=== PATIENT | female | born 1940 | race Caucasian/White ===

== ENCOUNTER 2016-10-30 18:02 | Inpatient (IN) | payer MEDICARE ==
[~2016-10-30] VITALS: Ht 160 cm; Wt 62.6 kg
[2016-10-30] MEDS ORDERED: SODIUM CHLORIDE 0.9% 1,000 ML IV ONE (19:38)
[2016-10-30] MEDS ORDERED: LOSA50TA6 PO (19:41)
[2016-10-30] MEDS ORDERED: CIPR250T27 PO (19:41)
[2016-10-30] MEDS ORDERED: METO-95 PO (19:41)
[2016-10-30] MEDS ORDERED: URSO300C27 PO (19:41)
[2016-10-30] MEDS ORDERED: OMEG100023 PO (19:41)
[2016-10-30] MEDS ORDERED: SODI650T PO (19:41)
[2016-10-30] MEDS ORDERED: LOPE1LIQ31 PO (19:41)
[2016-10-30] MEDS ORDERED: OMEP-110 PO (19:41)
[2016-10-30] MEDS ORDERED: AMIT50TA PO (19:41)
[2016-10-30] MEDS ORDERED: CHOL200012 PO (19:41)
[2016-10-30] MEDS ORDERED: AMLO10TA2 PO (19:41)
[2016-10-30] MEDS ORDERED: MV-M1TAB35 PO (19:41)
[2016-10-30] MEDS ORDERED: ONDANSETRON 2MG/ML, 2ML ONE (19:45)
[2016-10-30] MEDS ORDERED: MORPHINE SULFATE 4 MG/ML, 1ML ONE (19:46)
[2016-10-30] MEDS ORDERED: SODIUM CHLORIDE 0.9% 1,000ML IVBOLUS ONE (20:00)
[2016-10-30] MEDS ORDERED: PLEASE ENTER ALLERGIES MC SCH ×2 (20:00)
[2016-10-30] MEDS ORDERED: MORPHINE SULFATE 4 MG/ML, 1ML IVPush PRN (20:00)
[2016-10-30] MEDS ORDERED: SODIUM CHLORIDE FLUSH 10ML SYR IVF ONE (20:00)
[2016-10-30] MEDS ORDERED: ONDANSETRON 2MG/ML, 2ML IVPush ONE (20:00)
[2016-10-30 20:14] LABS: ASPARTATE AMINO TRANSFERASE 45 U/L (15-37); BLOOD UREA NITROGEN 34 mg/dL (7-18)
[2016-10-30] MEDS ORDERED: HYDROmorphone 2 MG/ML, 1ML IVPush PRN (23:00)
[2016-10-30] MEDS ORDERED: LABETALOL 5MG/ML 40ML VIAL IVPush PRN (23:00)
[2016-10-30] MEDS ORDERED: PROMETHAZINE 25 MG/ML, 1ML IM PRN (23:00)
[2016-10-30] MEDS ORDERED: ONDANSETRON 2MG/ML, 2ML IVPush PRN (23:00)
[2016-10-30 23:11] VITALS: BP 142/79
[2016-10-31 01:17] VITALS: BP 114/60
[2016-10-31] MEDS: SODIUM CHLORIDE 0.9% 1,000 ML IV SCH ×3 (02:00→16:54)
[2016-10-31 06:05] LABS: BLOOD UREA NITROGEN 29 mg/dL (7-18)
[2016-10-31 07:25] VITALS: BP 120/77
[2016-10-31 13:06] VITALS: BP 150/84
[2016-10-31 20:40] VITALS: BP 138/81
[2016-10-31] MEDS: AMITRIPTYLINE 50 MG TABLET PO SCH (21:29)
[2016-11-01] MEDS: SODIUM CHLORIDE 0.9% 1,000 ML IV SCH ×3 (02:00→17:24)
[2016-11-01 04:07] VITALS: BP 130/64
[2016-11-01 06:19] LABS: ASPARTATE AMINO TRANSFERASE 66 U/L (15-37); BLOOD UREA NITROGEN 12 mg/dL (7-18)
[2016-11-01 07:02] VITALS: BP 139/77
[2016-11-01] MEDS ORDERED: MAGNESIUM SULFATE PMX 4GM/100M 100 ML IV ONE (07:30)
[2016-11-01] MEDS: LOSARTAN 50MG TABLET PO SCH (08:49)
[2016-11-01] MEDS: POTASSIUM CHLORIDE 20 MEQ TAB.ER.PRT PO SCH ×4 (08:49→22:20)
[2016-11-01] MEDS: AMITRIPTYLINE 50 MG TABLET PO SCH ×2 (08:49→21:08)
[2016-11-01] MEDS: METOPROLOL SUCCINATE 100 MG TAB.ER.24H PO SCH (08:50)
[2016-11-01] MEDS: OMEPRAZOLE 20 MG CAPSULE.DR PO SCH (08:50)
[2016-11-01] MEDS: AMLODIPINE 5 MG TABLET PO SCH (08:50)
[2016-11-01 14:11] VITALS: BP 127/80
[2016-11-01 20:02] VITALS: BP 130/75
[2016-11-02] MEDS: SODIUM CHLORIDE 0.9% 1,000 ML IV SCH ×2 (00:22→08:34)
[2016-11-02 04:24] VITALS: BP 124/81
[2016-11-02 05:52] LABS: BLOOD UREA NITROGEN 5 mg/dL (7-18)
[2016-11-02 08:00] VITALS: BP 137/80
[2016-11-02] MEDS: AMLODIPINE 5 MG TABLET PO SCH (08:35)
[2016-11-02] MEDS: POTASSIUM CHLORIDE 20 MEQ TAB.ER.PRT PO SCH (08:36)
[2016-11-02] MEDS: LOSARTAN 50MG TABLET PO SCH (08:37)
[2016-11-02] MEDS: OMEPRAZOLE 20 MG CAPSULE.DR PO SCH (08:37)
[2016-11-02] MEDS: AMITRIPTYLINE 50 MG TABLET PO SCH (08:37)
[2016-11-02] MEDS: METOPROLOL SUCCINATE 100 MG TAB.ER.24H PO SCH (08:37)
[2016-11-02] MEDS ORDERED: POTASSIUM CHLORIDE 20 MEQ TAB.ER.PRT PO SCH (09:30)
[2016-11-02] MEDS ORDERED: POTA20TA6 PO (10:19)
[2016-11-02 10:48] VITALS: BP 146/82
== END 2016-11-02 11:38 | disposition home or self-care (01) | DRG 394 ==
LOC: ED 19:25 → EDIP 21:44 → 4NOR 23:06 → DCLOUNGE 11-02 11:23
PROVIDERS: ADMIT Internal Medicine; ATTEND Internal Medicine
DX: K43.3 Parastomal hernia with obstruction, without gangrene (principal); R17 Unspecified jaundice; K51.90 Ulcerative colitis, unspecified, without complications; I13.10 Hypertensive heart and chronic kidney disease without heart failure, with stage 1 through stage 4 chronic kidney disease, or unspecified chronic kidney disease; G62.9 Polyneuropathy, unspecified; E83.42 Hypomagnesemia; E87.6 Hypokalemia; K43.2 Incisional hernia without obstruction or gangrene; N18.3 Chronic kidney disease, stage 3 (moderate); Z66 Do not resuscitate; Z82.49 Family history of ischemic heart disease and other diseases of the circulatory system; Z86.711 Personal history of pulmonary embolism; Z90.49 Acquired absence of other specified parts of digestive tract; Z93.2 Ileostomy status; Z79.899 Other long term (current) drug therapy
CPT/HCPCS: 36415; 74000; 74176; 80048; 80053; 83036; 83690; 83735; 84439; 84443; 85025; 85610; 96374; 96375; J2405; J3475; J7030

== ENCOUNTER → 2016-12-08 | Outpatient (CLI) | payer MEDICARE ==
[~2016-12-08] MED LIST: AMIT50TA PO; AMLO10TA2 PO; CHOL200012 PO; CIPR250T27 PO; CRAN400T6 PO; L.AC1CAP6 PO; LOPE1LIQ31 PO; LOPE2TAB28 PO; LOSA50TA6 PO; METO-95 PO; MV-M1TAB35 PO; OMEG100023 PO; OMEP-110 PO; POTA20TA6 PO; SODI650T PO; URSO300C27 PO
[2016-12-08 10:59] LABS: BLOOD UREA NITROGEN 23 mg/dL (7-18)
[2016-12-08 11:02] LABS: ASPARTATE AMINO TRANSFERASE 57 U/L (15-37)
== END | disposition home or self-care (01) ==
LOC: STAR 09:40
PROVIDERS: ATTEND Colon & Rectal Surgery
DX: Z01.818 Encounter for other preprocedural examination (principal)
CPT/HCPCS: 36415; 80053; 93005

== ENCOUNTER 2016-12-16 07:04 | Inpatient (IN) | payer MEDICARE ==
[~2016-12-16] VITALS: Ht 160 cm; Wt 61.0 kg
[2016-12-16] MEDS ORDERED: LACTATED RINGERS 1,000 ML IV SCH ×2 (07:20→07:24)
[2016-12-16] MEDS ORDERED: FENTANYL PF 250 MCG/5ML ONE (07:38)
[2016-12-16] MEDS ORDERED: BUPIVACAINE/PF 0.5% ONE (08:40)
[2016-12-16] MEDS ORDERED: BUPIVACAINE/PF 0.25% ONE (08:40)
[2016-12-16] MEDS ORDERED: BUPIVACAINE/PF-EPI 0.5% 1:200K ONE (08:40)
[2016-12-16] MEDS ORDERED: ROCURONIUM 10 MG/ML ONE (09:30)
[2016-12-16] MEDS ORDERED: ONDANSETRON 2MG/ML, 2ML ONE ×2 (09:30→13:06)
[2016-12-16] MEDS ORDERED: PROPOFOL 10 MG/ML, 20ML ONE (09:30)
[2016-12-16] MEDS ORDERED: GLYCOPYRROLATE 0.2MG/1ML ONE (09:30)
[2016-12-16] MEDS ORDERED: NEOSTIGMINE 1 MG/ML, 10ML ONE (09:30)
[2016-12-16] MEDS ORDERED: CEFOTETAN 2 GM ONE (09:30)
[2016-12-16] MEDS ORDERED: DEXAMETHASONE 4 MG/ML, 1ML ONE (09:30)
[2016-12-16] MEDS ORDERED: OXYcodone 5 MG/5 ML ORAL.SOL UDC PO PRN (10:30)
[2016-12-16] MEDS ORDERED: hydrALAzine 20 MG/ML, 1ML IV PRN (10:30)
[2016-12-16] MEDS ORDERED: ACETAMINOPHEN 325 MG TABLET PO PRN (10:30)
[2016-12-16] MEDS ORDERED: ONDANSETRON 2MG/ML, 2ML IVPush PRN ×2 (10:30→14:30)
[2016-12-16] MEDS ORDERED: METOCLOPRAMIDE 5 MG/ML, 2ML IV PRN (10:30)
[2016-12-16] MEDS ORDERED: LABETALOL 5MG/ML, 20ML IV PRN (10:30)
[2016-12-16] MEDS: FENTANYL PF 100 MCG/2ML IV PRN ×4 (12:11→12:47)
[2016-12-16] MEDS ORDERED: FENTANYL PF 100 MCG/2ML ONE (12:12)
[2016-12-16] MEDS ORDERED: morphine SULFATE 10 MG/ML, 1ML ONE (12:12)
[2016-12-16] MEDS: morphine SULFATE 10 MG/ML, 1ML IV PRN ×4 (12:15→12:52)
[2016-12-16] MEDS ORDERED: ACETAMINOPHEN 650 MG/20.3 ML UDC ONE (12:48)
[2016-12-16] MEDS ORDERED: OXYcodone 5 MG/5 ML ORAL.SOL UDC ONE (12:49)
[2016-12-16] MEDS ORDERED: OXYcodone/APAP 5/325MG TABLET PO PRN (14:30)
[2016-12-16] MEDS ORDERED: KETOROLAC 30 MG/1 ML IV PRN (14:30)
[2016-12-16] MEDS ORDERED: MORPHINE SULFATE 4 MG/ML, 1ML IVPush PRN (14:30)
[2016-12-16] MEDS ORDERED: DIPHENHYDRAMINE 50 MG/ML, 1ML IVPush PRN (14:30)
[2016-12-16] MEDS: LACTATED RINGERS 1,000 ML IV SCH (15:46)
[2016-12-16 20:11] VITALS: BP 128/75
[2016-12-16] MEDS: AMITRIPTYLINE 50 MG TABLET PO SCH (20:44)
[2016-12-16] MEDS: URSODIOL 300 MG CAPSULE PO SCH (20:44)
[2016-12-17 01:09] VITALS: BP 119/72
[2016-12-17] MEDS: LACTATED RINGERS 1,000 ML IV SCH ×2 (01:56→14:00)
[2016-12-17 04:00] VITALS: BP 107/60
[2016-12-17] MEDS: METOPROLOL SUCCINATE 100 MG TAB.ER.24H PO SCH (05:49)
[2016-12-17 08:33] VITALS: BP 125/69
[2016-12-17] MEDS: AMLODIPINE 5 MG TABLET PO SCH (08:41)
[2016-12-17] MEDS: CHOLECALCIFEROL 1,000 UNIT TABLET PO SCH (08:41)
[2016-12-17] MEDS: OMEPRAZOLE 20 MG CAPSULE.DR PO SCH (08:41)
[2016-12-17] MEDS: AMITRIPTYLINE 50 MG TABLET PO SCH ×2 (08:41→20:58)
[2016-12-17] MEDS: LOSARTAN 50MG TABLET PO SCH (08:41)
[2016-12-17] MEDS: URSODIOL 300 MG CAPSULE PO SCH ×2 (08:41→20:59)
[2016-12-17] MEDS: ENOXAPARIN 40 MG/0.4 ML SQ SCH (08:42)
[2016-12-17 13:07] VITALS: BP 118/71
[2016-12-17] MEDS: HYDROcodone/APAP 5/325 TABLET PO PRN ×3 (13:19→22:19)
[2016-12-17 18:45] VITALS: BP 128/75
[2016-12-18 01:06] VITALS: BP 117/64
[2016-12-18 05:37] LABS: BLOOD UREA NITROGEN 12 mg/dL (7-18)
[2016-12-18] MEDS: METOPROLOL SUCCINATE 100 MG TAB.ER.24H PO SCH (05:51)
[2016-12-18 06:43] VITALS: BP 144/81
[2016-12-18] MEDS: OMEPRAZOLE 20 MG CAPSULE.DR PO SCH (07:44)
[2016-12-18] MEDS: HYDROcodone/APAP 5/325 TABLET PO PRN ×2 (07:44→13:30)
[2016-12-18] MEDS: URSODIOL 300 MG CAPSULE PO SCH (09:52)
[2016-12-18] MEDS: AMLODIPINE 5 MG TABLET PO SCH (09:52)
[2016-12-18] MEDS: AMITRIPTYLINE 50 MG TABLET PO SCH (09:52)
[2016-12-18] MEDS: CHOLECALCIFEROL 1,000 UNIT TABLET PO SCH (09:53)
[2016-12-18] MEDS: ENOXAPARIN 40 MG/0.4 ML SQ SCH (09:53)
[2016-12-18] MEDS: LOSARTAN 50MG TABLET PO SCH (09:54)
[2016-12-18] MEDS: LACTATED RINGERS 1,000 ML IV SCH ×2 (10:00)
[2016-12-18] MEDS ORDERED: HYDR-3240 PO (10:21)
[2016-12-18] MEDS ORDERED: POTA20TA89 PO (10:22)
[2016-12-18] MEDS ORDERED: POTASSIUM CHLORIDE 20 MEQ TAB.ER.PRT PO ONE (10:30)
[2016-12-18 13:31] VITALS: BP 133/80
== END 2016-12-18 13:40 | disposition home or self-care (01) | DRG 355 ==
LOC: OUT 07:04 → 4NOR 14:13 → OUT 22:42 → OBSVTOIN 12-17 12:30
PROVIDERS: ADMIT Colon & Rectal Surgery; ATTEND Colon & Rectal Surgery
PROC: 8E0W4CZ Robotic Assisted Procedure of Trunk Region, Percutaneous Endoscopic Approach (ICD-10-PCS; 2016-12-16)
PROC: 0WUF4JZ Supplement Abdominal Wall with Synthetic Substitute, Percutaneous Endoscopic Approach (ICD-10-PCS; principal; 2016-12-16 09:00)
DX: K43.3 Parastomal hernia with obstruction, without gangrene (principal); I10 Essential (primary) hypertension; Z93.2 Ileostomy status; Z86.711 Personal history of pulmonary embolism; Z88.6 Allergy status to analgesic agent; Z90.49 Acquired absence of other specified parts of digestive tract; Z98.49 Cataract extraction status, unspecified eye; Z90.89 Acquired absence of other organs; Z95.9 Presence of cardiac and vascular implant and graft, unspecified; Z80.3 Family history of malignant neoplasm of breast; Z82.49 Family history of ischemic heart disease and other diseases of the circulatory system; Z83.49 Family history of other endocrine, nutritional and metabolic diseases
CPT/HCPCS: 36415; 80048; 83735; 85025; G0378; J1100; J1650; J1885; J2405; J2704; J2710; J3010; J3490; C1781; J2270; J7120; S0074

== ENCOUNTER 2019-11-24 11:51 | Inpatient (IN) | payer MEDICARE ==
[~2019-11-24] VITALS: Ht 160 cm; Wt 63.6 kg
[~2019-11-24 11:51] MED LIST changes: -AMLO10TA2 PO; +AMLO10TA8 PO; +CEFD300C37 PO; -CHOL200012 PO; +CHOL200074 PO; +CRAN400T4 PO; -CRAN400T6 PO; +HYDR-3240 PO; +LOSA50TA14 PO; -LOSA50TA6 PO; +POTA20TA89 PO
--- NOTE | 2019-11-24 12:10 | NUR ---
PT SENT FROM FOR POSSIBLE SBO. PT HAS ILEOSTOMY, NO OUTPUT IN 24HRS. PT C/O N/V X24 HOURS. PT CONNECTED TO MONITORING. CALL LIGHT IN REACH. DAUGHTER AT BEDSIDE.
[2019-11-24] MEDS ORDERED: ONDANSETRON 2MG/ML, 2ML ONE (12:56)
--- NOTE | 2019-11-24 12:59 | NUR ---
PIV PLACED. LABS DRAWN. RECEIVED VERBAL ORDER FROM PROVIDER FOR ZOFRAN 4MG IV ONCE. PT RESTING ON CHRISTOPHER. AMY.
--- NOTE | 2019-11-24 13:20 | NUR ---
AT BEDSIDE FOR ASSESSMENT.
[2019-11-24] MEDS ORDERED: SODIUM CHLORIDE 0.9% 1,000 ML IV ONE (13:21)
[2019-11-24] MEDS ORDERED: MORPHINE SULFATE 4 MG/ML, 1ML IVPush PRN (13:30)
[2019-11-24] MEDS ORDERED: ONDANSETRON 2MG/ML, 2ML IVPush ONE (13:30)
[2019-11-24] MEDS ORDERED: SODIUM CHLORIDE FLUSH 10ML SYR IVF ONE (13:30)
[2019-11-24] MEDS ORDERED: MORPHINE SULFATE 4 MG/ML, 1ML ONE (13:34)
[2019-11-24 13:43] LABS: BASOPHILS # (AUTO) 0.01 x10^3/uL (0-0.1); BASOPHILS % (AUTO) 0 % (0-1); EOSINOPHILS % (AUTO) 0 % (1-7); LYMPHOCYTES # (AUTO) 0.98 x10^3/uL (1-3.4); LYMPHOCYTES % (AUTO) 9 % (22-44); MD NO; MEAN CORPUSCULAR HEMOGLOBIN 32.1 pg (27.0-34.8); MEAN CORPUSCULAR HGB CONC 33.5 g/dL (32.4-35.8); MEAN CORPUSCULAR VOLUME 95.8 fL (80-100); MEAN PLATELET VOLUME 8.4 fL (7.4-10.4); MONOCYTES # (AUTO) 0.41 x10^3/uL (0.2-0.8); MONOCYTES % (AUTO) 4 % (2-9); NEUTROPHILS # (AUTO) 9.76 x10^3/uL (1.8-6.8); NEUTROPHILS % (AUTO) 87 % (42-75); PLATELET COUNT 268 x10^3/uL (130-400); RED BLOOD COUNT 5.16 x10^6/uL (3.82-5.3); RED CELL DISTRIBUTION WIDTH 13.6 % (9.6-15.2)
--- NOTE | 2019-11-24 13:44 | NUR ---
PT AMBULATED TO RESTROOM WITH STEADY GAIT TO PROVIDE URINE SAMPLE. UA COLLECTED AND TAKEN TO LAB. MEDS ADMIN PER AUG. PT PLACED ON OXYGEN FOR SAFETY. PT STATES SHE FEELS BETTER AFTER ZOFRAN.
[2019-11-24 13:48] LABS: ALANINE AMINOTRANSFERASE 159 U/L (12-78); ALBUMIN 4.3 g/dL (3.4-5.0); ANION GAP 11 mmol/L (5-15); CALCIUM 12.1 mg/dL (8.5-10.1); CHLORIDE 100 mmol/L (98-107); CREATININE 2.26 mg/dL (0.55-1.02)
[2019-11-24 13:50] LABS: ALKALINE PHOSPHATASE 179 U/L (45-117); BILIRUBIN,TOTAL 1.6 mg/dL (0.2-1.0)
--- NOTE | 2019-11-24 14:08 | NUR ---
PT STATES PAIN IS BETTER AFTER PAIN MEDS. PT RESTING COMFORTABLY ON GURNEY. AMY.
[2019-11-24 14:54] LABS: MICROSCOPIC INDICATED
--- NOTE | 2019-11-24 15:07 | NUR ---
PT GOING TO CT.
--- NOTE | 2019-11-24 15:31 | NUR ---
PT BACK FROM CT. PT STATES HER ILEOSTOMY BAG IS FULL. PT AMBULATED TO RESTROOM WITH STEADY GAIT TO EMPTY HER ILEOSTOMY BAG. PT RECONNECTED TO MONITORING. IVF RUNNING.
--- NOTE | 2019-11-24 15:35 | NUR ---
ALL RESULTS ARE BACK AT THIS TIME. CHART UP FOR RECHECK.
--- NOTE | 2019-11-24 15:48 | NUR ---
MD AT BEDSIDE TO UPDATE PT ON POC.
--- NOTE | 2019-11-24 16:01 | NUR ---
PT TO BE ADMITTED.
[2019-11-24] MEDS ORDERED: CEFTRIAXONE PMX 1GM/50ML 50 ML ONE (16:08)
--- NOTE | 2019-11-24 16:16 | NUR ---
IV ABX ADMIN PER AUG. PER MD, BLOOD CULTURES NOT NEEDED FOR UTI. PT NPO FOR PARTIAL SBO.
[2019-11-24] MEDS ORDERED: CEFTRIAXONE PMX 1GM/50ML 50 ML IV ONE (16:30)
[2019-11-24] MEDS ORDERED: SODIUM CHLORIDE FLUSH 10ML SYR IVF PRN (17:00)
[2019-11-24] MEDS ORDERED: HYDROcodone/APAP 5/325 TABLET PO PRN (17:00)
[2019-11-24] MEDS ORDERED: morphine SULFATE 10 MG/ML, 1ML IVPush PRN (17:00)
[2019-11-24] MEDS ORDERED: ONDANSETRON 2MG/ML, 2ML IVPush PRN (17:00)
[2019-11-24] MEDS ORDERED: ACETAMINOPHEN 325 MG TABLET PO PRN (17:00)
[2019-11-24] MEDS ORDERED: ONDANSETRON ODT 4 MG PO PRN (17:00)
[2019-11-24] MEDS: CEFTRIAXONE PMX 1GM/50ML 50 ML IV SCH (17:00)
--- NOTE | 2019-11-24 17:33 | NUR ---
REPORT GIVEN TO TRISH FINNEGAN.
[2019-11-24 18:40] VITALS: BP 175/94
[2019-11-24 19:42] VITALS: BP 142/76
[2019-11-24] MEDS: SODIUM BICARBONATE 650 MG TABLET PO SCH (20:42)
[2019-11-24] MEDS: AMITRIPTYLINE 50 MG TABLET PO SCH (20:42)
[2019-11-24] MEDS: URSODIOL 300 MG CAPSULE PO SCH (20:42)
[2019-11-24] MEDS: NS + 20MEQ KCL 1,000 ML IV SCH (20:42)
[2019-11-25 00:58] VITALS: BP 159/76
[2019-11-25 06:57] VITALS: BP 143/81
[2019-11-25 07:44] LABS: ALBUMIN 3.3 g/dL (3.4-5.0); ANION GAP 12 mmol/L (5-15); CALCIUM 10.1 mg/dL (8.5-10.1); CHLORIDE 107 mmol/L (98-107)
[2019-11-25 07:47] LABS: ALANINE AMINOTRANSFERASE 203 U/L (12-78); ALKALINE PHOSPHATASE 149 U/L (45-117); BILIRUBIN,TOTAL 1.1 mg/dL (0.2-1.0); CREATININE 1.83 mg/dL (0.55-1.02)
[2019-11-25 08:12] LABS: MEAN CORPUSCULAR HEMOGLOBIN 32.2 pg (27.0-34.8); MEAN CORPUSCULAR HGB CONC 33.6 g/dL (32.4-35.8); MEAN CORPUSCULAR VOLUME 95.9 fL (80-100); MEAN PLATELET VOLUME 8.1 fL (7.4-10.4); PLATELET COUNT 205 x10^3/uL (130-400); RED CELL DISTRIBUTION WIDTH 13.8 % (9.6-15.2)
[2019-11-25 08:14] LABS: BASOPHILS # (AUTO) 0.02 x10^3/uL (0-0.1); BASOPHILS % (AUTO) 0 % (0-1); EOSINOPHILS # (AUTO) 0.04 x10^3/uL (0-0.4); EOSINOPHILS % (AUTO) 1 % (1-7); LYMPHOCYTES # (AUTO) 0.97 x10^3/uL (1-3.4); LYMPHOCYTES % (AUTO) 12 % (22-44); MD SCAN; MONOCYTES % (AUTO) 5 % (2-9); NEUTROPHILS # (AUTO) 6.57 x10^3/uL (1.8-6.8); NEUTROPHILS % (AUTO) 82 % (42-75)
[2019-11-25] MEDS: OMEPRAZOLE 20 MG CAPSULE.DR PO SCH (08:15)
[2019-11-25] MEDS: SODIUM BICARBONATE 650 MG TABLET PO SCH ×2 (08:15→21:07)
[2019-11-25] MEDS: URSODIOL 300 MG CAPSULE PO SCH ×2 (08:16→21:07)
[2019-11-25] MEDS: LOSARTAN 50MG TABLET PO SCH (08:16)
[2019-11-25] MEDS: AMITRIPTYLINE 50 MG TABLET PO SCH ×3 (08:16→21:08)
[2019-11-25] MEDS: CHOLECALCIFEROL 5,000u TAB PO SCH (08:17)
[2019-11-25] MEDS: AMLODIPINE 10 MG TAB PO SCH (08:17)
[2019-11-25] MEDS: METOPROLOL SUCCINATE 100 MG TAB.ER.24H PO SCH (08:17)
[2019-11-25] MEDS: NS + 20MEQ KCL 1,000 ML IV SCH (11:56)
[2019-11-25 12:58] VITALS: BP 132/78
[2019-11-25] MEDS ORDERED: LORazepam 2 MG/ML, 1ML IVPush PRN (13:00)
[2019-11-25] MEDS: HEPARIN 5,000 UNITS/ML, 1ML SQ SCH (17:54)
[2019-11-25] MEDS: CEFTRIAXONE PMX 1GM/50ML 50 ML IV SCH (17:54)
[2019-11-25 20:00] VITALS: BP 107/70
[2019-11-26 01:10] VITALS: BP 110/71
[2019-11-26] MEDS: HEPARIN 5,000 UNITS/ML, 1ML SQ SCH ×2 (01:10→08:45)
[2019-11-26 05:03] LABS: BASOPHILS # (AUTO) 0.03 x10^3/uL (0-0.1); BASOPHILS % (AUTO) 0 % (0-1); EOSINOPHILS # (AUTO) 0.13 x10^3/uL (0-0.4); EOSINOPHILS % (AUTO) 2 % (1-7); LYMPHOCYTES % (AUTO) 17 % (22-44); MD NO; MEAN CORPUSCULAR HEMOGLOBIN 32.2 pg (27.0-34.8); MEAN CORPUSCULAR HGB CONC 33.5 g/dL (32.4-35.8); MEAN CORPUSCULAR VOLUME 95.9 fL (80-100); MEAN PLATELET VOLUME 8.2 fL (7.4-10.4); MONOCYTES # (AUTO) 0.43 x10^3/uL (0.2-0.8); MONOCYTES % (AUTO) 7 % (2-9); NEUTROPHILS # (AUTO) 4.46 x10^3/uL (1.8-6.8); NEUTROPHILS % (AUTO) 74 % (42-75); PLATELET COUNT 170 x10^3/uL (130-400); RED BLOOD COUNT 4.26 x10^6/uL (3.82-5.3); RED CELL DISTRIBUTION WIDTH 13.9 % (9.6-15.2)
[2019-11-26 05:18] LABS: ALBUMIN 3.2 g/dL (3.4-5.0); ANION GAP 7 mmol/L (5-15); CALCIUM 9.5 mg/dL (8.5-10.1); CHLORIDE 107 mmol/L (98-107)
[2019-11-26 05:22] LABS: ALANINE AMINOTRANSFERASE 274 U/L (12-78); ALKALINE PHOSPHATASE 150 U/L (45-117); BILIRUBIN,TOTAL 1.1 mg/dL (0.2-1.0); CREATININE 1.91 mg/dL (0.55-1.02)
[2019-11-26] MEDS: NS + 20MEQ KCL 1,000 ML IV SCH (05:57)
[2019-11-26 07:30] VITALS: BP 131/70
[2019-11-26] MEDS: OMEPRAZOLE 20 MG CAPSULE.DR PO SCH (08:44)
[2019-11-26] MEDS: URSODIOL 300 MG CAPSULE PO SCH (08:44)
[2019-11-26] MEDS: AMITRIPTYLINE 50 MG TABLET PO SCH (08:44)
[2019-11-26] MEDS: CHOLECALCIFEROL 5,000u TAB PO SCH (08:44)
[2019-11-26] MEDS: LOSARTAN 50MG TABLET PO SCH (08:45)
[2019-11-26] MEDS: AMLODIPINE 10 MG TAB PO SCH (08:45)
[2019-11-26] MEDS: SODIUM BICARBONATE 650 MG TABLET PO SCH (08:45)
[2019-11-26] MEDS: METOPROLOL SUCCINATE 100 MG TAB.ER.24H PO SCH (08:45)
[2019-11-26] MEDS ORDERED: CEFD300C37 PO (10:38)
[2019-11-26 12:36] VITALS: BP 119/77
[2019-11-26 16:13] LABS: ANA SCREEN NEGATIVE (Negative)
== END 2019-11-26 13:51 | disposition home or self-care (01) | DRG 389 ==
LOC: ED 12:34 → EDIP 16:48 → 3N 18:24 → DCLOUNGE 11-26 13:44
PROVIDERS: ADMIT Family Medicine; ATTEND Family Medicine
DX: K56.600 Partial intestinal obstruction, unspecified as to cause (principal); N39.0 Urinary tract infection, site not specified; N18.4 Chronic kidney disease, stage 4 (severe); K21.9 Gastro-esophageal reflux disease without esophagitis; Z66 Do not resuscitate; E86.0 Dehydration; E83.52 Hypercalcemia; I12.9 Hypertensive chronic kidney disease with stage 1 through stage 4 chronic kidney disease, or unspecified chronic kidney disease; G62.9 Polyneuropathy, unspecified; Z90.49 Acquired absence of other specified parts of digestive tract; Z79.899 Other long term (current) drug therapy; Z86.711 Personal history of pulmonary embolism; Z88.5 Allergy status to narcotic agent; Z82.49 Family history of ischemic heart disease and other diseases of the circulatory system; Z87.19 Personal history of other diseases of the digestive system; Z95.828 Presence of other vascular implants and grafts
CPT/HCPCS: 36415; 74176; 74181; 80053; 80074; 81001; 82330; 83516; 83690; 83970; 85025; 86038; 87086; 93005; 96361; 96374; 96375; 99285; G0378; J0696; J1644; J2405; J3480; J2060; J2270; J7030